=== PATIENT | female | born 1965 | race Caucasian/White ===

== ENCOUNTER → 2024-01-22 10:32 | Outpatient (REF) | payer OTHER, SELFPAY | LOC: WDC 10:32 | PROVIDERS: ATTENDING PHYSICIAN Obstetrics & Gynecology Gynecology; FAMILY PHYSICIAN Physician Assistant Medical | DX: Z12.31 Encounter for screening mammogram for malignant neoplasm of breast (principal) | CPT/HCPCS: 77063; 77067 ==

== ENCOUNTER 2024-11-01 21:43 | Emergency (ER) | payer OTHER, SELFPAY ==
[2024-11-01 21:48] VITALS: BP 148/88
[2024-11-01 22:04] VITALS: BP 106/65
--- NOTE | 2024-11-01 22:17 | ED.GENMED ---
History of Present Illness
General
Chief Complaint: Fainting/Passed Out
Source: patient and spouse
Time Seen by Provider: 11/01/24 22:02
History of Present Illness
History of Present Illness:
This patient is a 59-year-old female who had an episode of syncope just prior to presentation here. She describes being very anxious given understandably that her daughter has a recent cancer diagnosis. She went to visit her daughter today and she
said she felt like it was a good visit. She ate dinner and had 1 drink. She came home and sat down to watch TV with her , and had another drink. She says she does not remember what happened after that but her describes her standing
up, walking across the room and then falling down. She was 'dazed and confused' for approximately 10 seconds with then complete return to normal level of consciousness. No tonic-clonic activity, incontinence, tongue biting, or postictal like
confusion. Patient says she feels fine. She does have a mild headache and it is documented that it patient has a history of chronic headaches in prior records. This headache is not worst of life. She denies neck pain, numbness, tingling, change
in vision, change in speech, chest pain, palpitations, dyspnea, fever, chills, nausea, vomiting, anorexia, urinary symptoms, or other complaints. She says that when she realized that she suffered a laceration/abrasion to her head she 'freaked out'.
Past History
Past History
ED Past Medical History: Other (Migraines, hypertension, chronic headaches, asthma)
ED Past Surgical History: Cholecystectomy, Gynecological and Urological; Negative Appendectomy, Bowel resection or Cardiac
Social History
Tobacco: Former smoker
Alcohol: Occasional
Drug: None
Personal:
Living: with family
Employment: Employed
Family History
Family History: Other (Noncontributory)
Phy Exam
Physical Exam
Physical Exam:
GENERAL: Alert , in no apparent distress
EYE: pupils equal and reactive, no photophobia, EOMI, no nystagmus
NECK: Supple, no significant adenopathy, no midline tenderness.
ENT: o/p clr, mm slightly dry, no tongue injury
CARDIAC: Regular rate and rhythm .
LUNGS: Clear breath sounds bilaterally, no acute respiratory distress, no wheezes/rales/rhonchi
ABDOMEN: Soft, without focal tenderness, no r/g, no cvat
NEUROLOGICAL: Alert and oriented, no focal neuro deficits, [id number] normal, Crill nerves II through XII intact, motor 5 out of 5, sensory intact
SKIN: Warm and dry, skin intact except for superficial laceration noted R frontoparietal area (measuring approx 4cm)
MUSCULOSKELETAL: No edema, well perfused.
PSYCH: Normal and appropriate interaction.
Course
Orders/Labs/Results
Orders:
Orders
11/01/24 21:54
ECG [Electrocardiogram (*1)] Urgent
Reason for Study: Syncope
Cardiology Consult: Unknown
EKG- Treatment ONCE
11/01/24 22:21
CT Head W/o Iv Contrast Urgent
Comment:
Reason For Exam: head injury
0.9% Sodium Chloride 1000 ml [Nss] 1,000 ml IV BOLUS
Tetanus/Diphth/Acelpertussis [Adacel] 0.5 ml IM .ONCE ONE
11/01/24 22:25
Alcohol Urgent
Complete Blood Count/With Diff Urgent
Comprehensive Metabolic Panel Urgent
11/01/24 23:12
Ketorolac [Toradol] 15 mg IV NOW STA
Abnormal Lab Results
11/01/24
22:25
RBC 4.06 L 10^6/uL
(4.20-5.40)
Absolute Monos (auto) 0.7 H 10^3/uL
(0.1-0.6)
Monocytes % 9.4 H %
(1.7-9.3)
BUN 28 H mg/dl
(7-17)
Glucose 171 H mg/dl
(70-99)
11/01/24 22:25
11/01/24 22:25
Vital Signs
Initial and Last Documented VS:
Initial Vital Signs
Temp Pulse Resp BP Pulse Ox
97.9 F 144 20 148/88 99
11/01/24 21:48 11/01/24 21:48 11/01/24 21:48 11/01/24 21:48 11/01/24 21:48
Last Documented Vital Signs
Temp Pulse Resp BP Pulse Ox
97.9 F 109 25 122/72 97
11/01/24 21:48 11/01/24 23:15 11/01/24 23:15 11/01/24 23:00 11/01/24 23:15
Procedures
Laceration Closure
Head:
Status of Wound: clean
Description of Wound Edges: ragged
Preparation: cleaned with saline
Anesthesia: 1% Lidocaine with epi
Revision/Debridement: routine- no revision
Wound exploration: explored to base- no FB
Type of Closure: single layer closure
Skin Closure Material: skin jakob
Additional information:
4 jakob placed
*Critical Care Note
Total Time (30-74mins, 75-104mins- exclusive of procedures): Not Applicable
Update Note
Update Note:
Patient presents to the Emergency Department with ___suspected syncope
Number and Complexity of Problems Addressed at the Encounter
� Chronic conditions affecting care:
� Acute Exacerbation and/or Progression of Chronic Illness:
� Differential Diagnosis includes: But not limited to anxiety, dehydration, electrolyte disorder, arrhythmia, vasovagal event, etc. etc.
Amount and/or Complexity of Data to be Reviewed and Analyzed
� I performed an independent evaluation of and my interpretation is:
EKG: Read by me sinus tachycardia, no acute ischemia
CT:read by vision...right frontal scalp sts with small subaleal hematoma. no fx. no acue intracranial finding. No ich, mass effect, midline shift or extraaxial fluid collection.
Xrays:
Laboratory Studies: Alcohol 64, labs generally unremarkable
Other:
� Review of other/old records reveals: Patient was admitted in 2019 with nausea and vomiting and mild renal insufficiency thought to be related to Bactrim.
� Clinical information was obtained by an independent historian: who is bedside
� Prescriptions/Medications Considered but not given:
� Further testing considered but not performed:
Risk of Complications and/or Morbidity or Mortality of Patient Management
� Social determinants of health affecting care:
� Discussion with other providers (PCP, Hospitalists, Consultants, etc):
� Escalation of care including admission/observation vs risk of discharge considered: R lateral fronto-parietal wound thoroughly cleaned. Repaired by me with 4 jakob. No other wounds identified.
11:50 PM patient remained stable here, no complaints or abnormalities noted. Strongly suspect vasovagal event. Workup here generally unremarkable. Discussed with patient importance of follow-up and reasons to return to the ER.
ED Attending Note
-
Portions of this chart may have been created with voice recognition software.� Occasional wrong word or��sound alike� substitutions may have occurred due to the inherent limitations of voice recognition software.
Discharge Plan
Departure
Patient Disposition: Home (Routine Discharge)
Date of Disposition: 11/01/24
Time of Disposition: 23:51
Patient with high blood pressure during this ER visit?: Yes
Condition: Good
Discharge Problem:
Laceration, Syncope
Instructions: Laceration Repair With Jakob (DC), Syncope (Fainting) (DC), Minor Head Injury (DC), BLOOD PRESSURE
Prescriptions:
No Action
topiramate 25 MG tablet
50 mg PO HS
lisinopril 10 MG tablet
10 mg PO DAILY
gabapentin 600 MG tablet
600 mg PO HS
gabapentin 300 MG capsule
300 mg PO DAILY
budesonide-formoterol [Symbicort] 1 PUFF HFA aerosol inhaler
1 puff inhalation DAILY
Activity Restrictions/Additional Instructions:
IF YOU DEVELOP DIZZINESS, CHEST PAIN, TROUBLE BREATHING, FEVER, NECK PAIN, CHANGE IN VISION/SPEECH, PASS OUT, OR OTHER WORRISOME SIGNS, GO TO THE ER IMMEDIATELY! YOUR JAKOB (4) CAN BE REMOVED BY YOUR PRIMARY CARE DOCTOR IN 10 DAYS.
Interventions
Interventions:
*Risk Screen - Suicide Last Done: 11/01/24 21:48
*General Assessment Last Done: 11/01/24 21:48
*Neglect/Abuse Screening Last Done: 11/01/24 21:48
*ED- Fall Risk Assessment Last Done: 11/01/24 21:48
*ED COVID-19 Vaccine History Last Done: 11/01/24 21:48
ED- Cardiac Assessment Last Done: 11/01/24 23:21
ED- Neurological Assessment Last Done: 11/01/24 22:44
ED-Skin Assessment Last Done: 11/01/24 23:21
Discharge Date and Time
Print Language: TANZANIAN
[2024-11-01] MEDS: NSS 1000 IV (22:29)
[2024-11-01] MEDS: ADACEL 0.5 ML IM (22:31)
[2024-11-01 22:32] LABS: % Basophils 1.4 % (0-2); % Eosinophils 3.5 % (0-6); % Immature Granulocytes 0.4 % (0-0.5); % Lymphocytes 26.8 % (20.5-51.1); % Monocytes 9.4 % (1.7-9.3); % Neutrophils 58.5 % (42.2-75.2); Absolute Basophils 0.1 10^3/uL (0-0.2); Absolute Eosinophils 0.3 10^3/uL (0-0.7); Absolute Lymphocytes 2.1 10^3/uL (1.2-3.4); Absolute Monocytes 0.7 10^3/uL (0.1-0.6); Absolute Neutrophils 4.6 10^3/uL (1.4-6.5); Hematocrit 37.1 % (37.0-47.0); Hemoglobin 12.6 g/dL (12.0-16.0); Mean Corpuscular Volume 91.4 fL (81.0-99.0); Mean Platelet Volume 10.1 fL (7.4-10.4); Nucleated Red Blood Cells % 0 %; Platelet Count 281 10^3/uL (130-400); Red Blood Cell Count 4.06 10^6/uL (4.20-5.40); Red Cell Dist. Width 13.2 % (11.5-14.5); White Blood Cell Count 7.8 10^3/uL (4.8-10.8)
[2024-11-01 22:46] LABS: ALT (SGPT) 28 U/L (0-35); AST (SGOT) 36 U/L (14-36); Albumin 4.5 g/dl (3.5-5.0); Alcohol 64 mg/dl; Alkaline Phosphatase 62 U/L (38-126); Blood Urea Nitrogen 28 mg/dl (7-17); Carbon Dioxide 22 mmol/L (22-30); Chloride 107 mmol/L (98-107); Glucose 171 mg/dl (70-99); Potassium 4.1 mmol/L (3.5-5.1); Sodium 143 mmol/L (135-145); Total Bilirubin 0.4 mg/dl (0.2-1.3); eGFR > 60.00
[2024-11-01 23:00] VITALS: BP 122/72
[2024-11-01] MEDS: TORADOL 15 MG IV (23:15)
== END 2024-11-02 00:03 | disposition home or self-care (01) ==
LOC: EMR 21:43
PROVIDERS: Emergency Medicine; EMERGENCY PHYSICIAN Emergency Medicine; FAMILY PHYSICIAN Internal Medicine
DX: R55 Syncope and collapse (principal); S01.01XA Laceration without foreign body of scalp, initial encounter; W19.XXXA Unspecified fall, initial encounter; I10 Essential (primary) hypertension; J45.909 Unspecified asthma, uncomplicated; Z87.891 Personal history of nicotine dependence; Z23 Encounter for immunization
CPT/HCPCS: 12002; 96374; 96361; 90471; 99284; 70450; 80053; 82077; 85025; 90715; 93005

== ENCOUNTER → 2025-01-27 08:03 | Outpatient (REF) | payer OTHER, SELFPAY | LOC: WDC 08:03 | PROVIDERS: ATTENDING PHYSICIAN Obstetrics & Gynecology Gynecology; FAMILY PHYSICIAN Internal Medicine | DX: Z12.31 Encounter for screening mammogram for malignant neoplasm of breast (principal) | CPT/HCPCS: 77063; 77067 ==